=== PATIENT | male | born 1935 | race Caucasian/White ===

== ENCOUNTER 2021-11-14 19:47 | Inpatient (IN) | payer MEDICARE, OTHER ==
[~2021-11-14] VITALS: Ht 177.8 cm; Wt 71.7 kg
[2021-11-14 21:33] LABS: Basophils # (auto) 0.1 10 ^3/uL (0-0.2); Basophils % (auto) 0.6 % (0.0-2.0); Eosinophils # (auto) 0.2 10 ^3/uL (0-0.8); Eosinophils % (auto) 2.1 % (0.0-7.0); Hematocrit 32.6 % (41.0-53.0); Hemoglobin 10.6 g/dL (13.5-17.5); Lymphocytes # (auto) 0.9 10 ^3/uL (0.4-5.4); Lymphocytes % (auto) 9.1 % (10.0-50.0); Mean Corpuscular Hgb Conc. 32.5 g/dL (32.0-36.0); Mean Corpuscular Volume 86.1 fL (80.0-100.0); Monocytes # (auto) 0.7 10 ^3/uL (0-1.3); Monocytes % (auto) 7.8 % (0.0-12.0); Neutrophils # (auto) 7.7 10 ^3/uL (1.6-8.6); Neutrophils % (auto) 80.4 % (37.0-80.0); Red Blood Cells 3.79 10^6/uL (4.5-5.90); White Blood Cell 9.6 10^3/uL (4.4-10.8)
[2021-11-14 21:38] LABS: Red Cell Distribution Width 20.9 % (11.8-14.3)
[2021-11-14 21:45] LABS: Albumin 3.5 g/dL (3.4-5.0); BUN/Creatinine Ratio 28.8; Calcium 9.2 mg/dL (8.5-10.1); Potassium 3.9 mmol/L (3.5-5.1)
[2021-11-14 21:48] LABS: Bilirubin, Total 0.2 mg/dL (0.2-1.0); Total Protein 6.6 g/dL (6.4-8.2)
[2021-11-14] MEDS ORDERED: MORPHINE SULFATE 4 MG/ML SYR/VIAL ONE ×2 (22:24→23:09)
[2021-11-14] MEDS ORDERED: MORPHINE SULFATE INJECTION 2 MG/ML SYRG IV ONE ×2 (22:30→23:50)
[2021-11-14 23:32] LABS: INR 1.08 (0.9-1.15); Partial Thromboplastin Time 31.3 sec (23.6-33.0)
[2021-11-14 23:40] LABS: Albumin 3.4 g/dL (3.4-5.0); Calcium 9.2 mg/dL (8.5-10.1); Potassium 3.9 mmol/L (3.5-5.1)
[2021-11-14 23:45] LABS: BUN/Creatinine Ratio 31.9; Bilirubin, Total 0.2 mg/dL (0.2-1.0)
[2021-11-14] MEDS ORDERED: LIDOCAINE 2% JELLY 11ml (GLYDO) UR ONE (23:45)
[2021-11-15] MEDS ORDERED: IOHEXOL 300 MG/ML 100ML BOTTLE IJ ONE (00:29)
[2021-11-15] MEDS ORDERED: HYDROmorphone HCL 2 MG/ML VL IV ONE ×3 (00:30→07:00)
[2021-11-15] MEDS ORDERED: LIDOCAINE 2% JELLY 11ml (GLYDO) UR ONE ×2 (02:15→04:45)
[2021-11-15] MEDS ORDERED: DOCUSATE SOD 100 MG CAP PO PRN (09:15)
[2021-11-15] MEDS ORDERED: ACETAMINOPHEN 325 MG TAB PO PRN (09:15)
[2021-11-15] MEDS ORDERED: ONDANSETRON HCL 4 MG/2 ML VIAL IV PRN (09:15)
[2021-11-15] MEDS ORDERED: NITROGLYCERIN 0.4 MG SL TAB SL PRN (10:30)
[2021-11-15] MEDS ORDERED: MORPHINE SULFATE INJECTION 2 MG/ML SYRG IV PRN (10:30)
[2021-11-15] MEDS: FAMOTIDINE (10MG/ML) 2ML VL IV SCH ×2 (11:22→21:59)
[2021-11-15] MEDS: METOPROLOL TARTRATE 25 MG TAB PO SCH ×2 (11:22→22:01)
[2021-11-15] MEDS: FINASTERIDE 5 MG TAB PO SCH (11:23)
[2021-11-15] MEDS: BELLADONNA ALKAL/OPIUM (16.2/30MG) RECT SUPP PR SCH (11:35)
[2021-11-15 17:00] VITALS: BP 85/55
[2021-11-15 22:00] VITALS: BP 101/52
[2021-11-15] MEDS: TAMSULOSIN HYDROCHLORIDE 0.4 MG CAP PO SCH (22:00)
[2021-11-15] MEDS: HYDROcodone-ACET 5/325MG TAB PO PRN (22:06)
[2021-11-15] MEDS: SODIUM CHLOR 0.9% PF (SALINE LOCK) 10ML VIAL/SYR IV SCH (22:17)
[2021-11-15] MEDS: MORPHINE SULFATE 4 MG/ML SYR/VIAL IV PRN (23:02)
[2021-11-16] MEDS: BELLADONNA ALKAL/OPIUM (16.2/30MG) RECT SUPP PR SCH ×3 (00:52→21:45)
[2021-11-16 05:00] VITALS: BP 99/50
[2021-11-16 06:14] LABS: Basophils # (auto) 0 10 ^3/uL (0-0.2); Basophils % (auto) 0.3 % (0.0-2.0); Eosinophils # (auto) 0 10 ^3/uL (0-0.8); Eosinophils % (auto) 0.2 % (0.0-7.0); Hematocrit 28.8 % (41.0-53.0); Hemoglobin 9.3 g/dL (13.5-17.5); Lymphocytes # (auto) 0.6 10 ^3/uL (0.4-5.4); Lymphocytes % (auto) 4.7 % (10.0-50.0); Mean Corpuscular Hemoglobin 28.1 pg (28.0-32.0); Mean Corpuscular Hgb Conc. 32.4 g/dL (32.0-36.0); Mean Corpuscular Volume 86.9 fL (80.0-100.0); Monocytes # (auto) 0.9 10 ^3/uL (0-1.3); Monocytes % (auto) 6.4 % (0.0-12.0); Neutrophils # (auto) 11.9 10 ^3/uL (1.6-8.6); Neutrophils % (auto) 88.4 % (37.0-80.0); Red Blood Cells 3.31 10^6/uL (4.5-5.90); White Blood Cell 13.5 10^3/uL (4.4-10.8)
[2021-11-16 06:39] LABS: Albumin 2.6 g/dL (3.4-5.0); Calcium 8.8 mg/dL (8.5-10.1); Potassium 3.5 mmol/L (3.5-5.1)
[2021-11-16 06:42] LABS: Bilirubin, Total 0.4 mg/dL (0.2-1.0); Total Protein 6.1 g/dL (6.4-8.2)
[2021-11-16 06:47] LABS: Red Cell Distribution Width 21.2 % (11.8-14.3)
[2021-11-16] MEDS: SODIUM CHLOR 0.9% PF (SALINE LOCK) 10ML VIAL/SYR IV SCH ×3 (07:06→21:44)
[2021-11-16 09:00] VITALS: BP 109/52
[2021-11-16] MEDS: FINASTERIDE 5 MG TAB PO SCH (10:00)
[2021-11-16] MEDS: METOPROLOL TARTRATE 25 MG TAB PO SCH ×2 (10:00→21:45)
[2021-11-16] MEDS: FAMOTIDINE (10MG/ML) 2ML VL IV SCH ×2 (10:00→21:44)
[2021-11-16] MEDS ORDERED: LACTULOSE 20Gm/30ML SOLN PO ONE (10:30)
[2021-11-16] MEDS ORDERED: LACTULOSE 20Gm/30ML SOLN PO PRN (10:30)
[2021-11-16 13:00] VITALS: BP 97/57
[2021-11-16 17:00] VITALS: BP 99/52
[2021-11-16] MEDS: TAMSULOSIN HYDROCHLORIDE 0.4 MG CAP PO SCH (21:44)
[2021-11-16 22:00] VITALS: BP 110/65
[2021-11-17] MEDS: MORPHINE SULFATE 4 MG/ML SYR/VIAL IV PRN ×2 (02:35→06:48)
[2021-11-17] MEDS: HYDROcodone-ACET 5/325MG TAB PO PRN (03:18)
[2021-11-17 05:00] VITALS: BP 109/58
[2021-11-17] MEDS: SODIUM CHLOR 0.9% PF (SALINE LOCK) 10ML VIAL/SYR IV SCH ×2 (06:47→14:03)
[2021-11-17] MEDS ORDERED: MULTTAB75 PO (07:09)
[2021-11-17] MEDS ORDERED: ASPI325T4 PO (07:09)
[2021-11-17] MEDS ORDERED: METH750T22 PO (07:09)
[2021-11-17] MEDS ORDERED: ATOR10TA52 PO (07:09)
[2021-11-17] MEDS ORDERED: ASCO-22 PO (07:09)
[2021-11-17] MEDS ORDERED: ACET-1156 PO (07:09)
[2021-11-17] MEDS ORDERED: OXY5T PO (07:09)
[2021-11-17] MEDS ORDERED: GABA300C10 PO (07:09)
[2021-11-17] MEDS ORDERED: CLOP75TA70 PO (07:09)
[2021-11-17] MEDS ORDERED: POLY33504 PO (07:09)
[2021-11-17] MEDS ORDERED: DOCU100T15 PO (07:09)
[2021-11-17 09:00] VITALS: BP 129/77
[2021-11-17] MEDS: FAMOTIDINE (10MG/ML) 2ML VL IV SCH (09:19)
[2021-11-17] MEDS: METOPROLOL TARTRATE 25 MG TAB PO SCH (09:20)
[2021-11-17] MEDS: FINASTERIDE 5 MG TAB PO SCH (09:20)
[2021-11-17] MEDS: BELLADONNA ALKAL/OPIUM (16.2/30MG) RECT SUPP PR SCH (10:41)
[2021-11-17] MEDS ORDERED: TAM04C PO (11:19)
[2021-11-17] MEDS ORDERED: FIN5T PO (11:19)
[2021-11-17 13:00] VITALS: BP 123/63
[2021-11-17 16:21] VITALS: BP 123/63
[2021-11-17 17:00] VITALS: BP 127/61
== END 2021-11-17 19:30 | disposition home or self-care (01) | DRG 690 ==
LOC: EDBD 19:47 → ER 19:52 → TELE 11-15 11:12 → TELE-WESTW 11-15 13:49
PROVIDERS: ADMIT Nurse Practitioner Family; ATTEND Internal Medicine
DX: N13.6 Pyonephrosis (principal); I10 Essential (primary) hypertension; I25.10 Atherosclerotic heart disease of native coronary artery without angina pectoris; I73.9 Peripheral vascular disease, unspecified; K59.00 Constipation, unspecified; R31.9 Hematuria, unspecified; Z20.822 Contact with and (suspected) exposure to COVID-19; Z89.512 Acquired absence of left leg below knee; Z95.1 Presence of aortocoronary bypass graft; Z88.1 Allergy status to other antibiotic agents; Z85.46 Personal history of malignant neoplasm of prostate
CPT/HCPCS: 36415; 74177; 80053; 84154; 84484; 85025; 85610; 85730; 87081; 87426; 93005; 96374; 96375; 96376; G0378; J2405; J3490

== ENCOUNTER 2021-11-28 19:33 | Emergency (ER) | payer MEDICARE, OTHER ==
[~2021-11-28] VITALS: Ht 177.8 cm; Wt 65.8 kg
[~2021-11-28 19:33] MED LIST: ACET-1156 PO; ASCO-22 PO; ASPI325T4 PO; ATOR10TA52 PO; CLOP75TA70 PO; DOCU100T15 PO; FIN5T PO; GABA300C10 PO; METH750T22 PO; MULTTAB75 PO; OXY5T PO; POLY33504 PO; TAM04C PO
[2021-11-28 22:32] LABS: Hemoglobin 9.3 g/dL (13.5-17.5)
[2021-11-28 22:34] LABS: Basophils # (auto) 0.1 10 ^3/uL (0-0.2); Basophils % (auto) 0.8 % (0.0-2.0); Eosinophils # (auto) 0.2 10 ^3/uL (0-0.8); Eosinophils % (auto) 1.2 % (0.0-7.0); Hematocrit 28.9 % (41.0-53.0); Lymphocytes # (auto) 0.8 10 ^3/uL (0.4-5.4); Lymphocytes % (auto) 4.9 % (10.0-50.0); Mean Corpuscular Hemoglobin 26.5 pg (28.0-32.0); Mean Corpuscular Hgb Conc. 32.1 g/dL (32.0-36.0); Mean Corpuscular Volume 82.6 fL (80.0-100.0); Monocytes # (auto) 1.1 10 ^3/uL (0-1.3); Monocytes % (auto) 7.1 % (0.0-12.0); Neutrophils # (auto) 13.3 10 ^3/uL (1.6-8.6); Nucleated Red Blood Cells % 0.2 %; White Blood Cell 15.5 10^3/uL (4.4-10.8)
[2021-11-28 22:37] LABS: Red Cell Distribution Width 20.8 % (11.8-14.3)
[2021-11-28 22:43] LABS: Urine Bacteria NONE SEEN /hpf (None Seen); Urine Blood 3+ /uL (Negative); Urine WBC 651 /hpf (0 - 3); Urine WBC Clumps PRESENT /hpf (None Seen)
[2021-11-28 22:48] LABS: Albumin 2.9 g/dL (3.4-5.0); Calcium 9.1 mg/dL (8.5-10.1); Potassium 4.2 mmol/L (3.5-5.1)
[2021-11-28 22:50] LABS: BUN/Creatinine Ratio 32.4
[2021-11-28 22:53] LABS: Bilirubin, Total 0.1 mg/dL (0.2-1.0); Total Protein 6.8 g/dL (6.4-8.2)
[2021-11-28] MEDS ORDERED: HYDROcodone-ACET 10/325MG TAB PO ONE (23:00)
[2021-11-29] MEDS ORDERED: CEPH-509 PO (00:24)
[2021-11-29 08:09] VITALS: BP 120/56
== END 2021-11-29 09:17 | disposition home or self-care (01) ==
LOC: EDBD 19:33 → ER 19:33
DX: R31.9 Hematuria, unspecified (principal); R94.31 Abnormal electrocardiogram [ECG] [EKG]; Z88.6 Allergy status to analgesic agent
CPT/HCPCS: 36415; 80053; 81001; 85025; 93005

== ENCOUNTER 2022-01-30 00:05 | Emergency (ER) | payer MEDICARE, OTHER ==
[~2022-01-30] VITALS: Ht 177.8 cm; Wt 49.9 kg
[~2022-01-30 00:05] MED LIST changes: +CEPH-509 PO
[2022-01-30 01:10] LABS: Basophils # (auto) 0 10 ^3/uL (0-0.2); White Blood Cell 5.5 10^3/uL (4.4-10.8)
[2022-01-30 01:12] LABS: Basophils % (auto) 0.3 % (0.0-2.0); Eosinophils # (auto) 0 10 ^3/uL (0-0.8); Hematocrit 25.7 % (41.0-53.0); Hemoglobin 8.2 g/dL (13.5-17.5); Lymphocytes # (auto) 0.4 10 ^3/uL (0.4-5.4); Lymphocytes % (auto) 6.8 % (10.0-50.0); Mean Corpuscular Hemoglobin 22.3 pg (28.0-32.0); Mean Corpuscular Hgb Conc. 31.8 g/dL (32.0-36.0); Mean Corpuscular Volume 70.1 fL (80.0-100.0); Monocytes # (auto) 0.3 10 ^3/uL (0-1.3); Monocytes % (auto) 4.8 % (0.0-12.0); Neutrophils # (auto) 4.8 10 ^3/uL (1.6-8.6); Neutrophils % (auto) 88.1 % (37.0-80.0); Nucleated Red Blood Cells % 0.1 %; Red Blood Cells 3.67 10^6/uL (4.5-5.90)
[2022-01-30 01:15] LABS: Red Cell Distribution Width 21.4 % (11.8-14.3)
[2022-01-30 01:27] LABS: Albumin 2.1 g/dL (3.4-5.0); BUN/Creatinine Ratio 43.2; Calcium 8.2 mg/dL (8.5-10.1); Magnesium 2.3 mg/dL (1.6-2.6)
[2022-01-30 01:30] LABS: Bilirubin, Total 0.4 mg/dL (0.2-1.0); Total Protein 5.9 g/dL (6.4-8.2)
[2022-01-30 03:04] LABS: Urine Bacteria MANY /hpf (None Seen); Urine Blood 1+ /uL (Negative); Urine Mucus FEW (None Seen); Urine Specific Gravity 1.018 (1.001-1.035); Urine WBC 1288 /hpf (0 - 3); Urine WBC Clumps PRESENT /hpf (None Seen)
[2022-01-30] MEDS ORDERED: cefTRIAXone SOD 1,000 MG VL IV ONE (03:30)
[2022-01-30] MEDS ORDERED: CEPH-509 PO (03:32)
[2022-01-30] MEDS ORDERED: cefTRIAXone SOD 1,000 MG VL IM ONE (04:15)
[2022-01-30 09:30] VITALS: BP 98/62
[2022-01-30] MEDS ORDERED: ACETAMINOPHEN 500 MG TAB PO ONE (13:45)
== END 2022-01-30 17:48 | disposition home or self-care (01) ==
LOC: ER 00:05 → EDBD 00:05 → ER 17:48
DX: R41.82 Altered mental status, unspecified (principal); N39.0 Urinary tract infection, site not specified; R94.31 Abnormal electrocardiogram [ECG] [EKG]; Z88.6 Allergy status to analgesic agent
CPT/HCPCS: 36415; 70450; 71045; 80053; 81001; 83605; 83735; 84484; 85025; 87040; 87077; 93005; 96372; 99285; J0696